=== PATIENT | female | born 1955 | race Caucasian/White ===

== ENCOUNTER 2016-03-25 19:35 | Inpatient (IN) | payer MEDICARE, MEDICAID ==
[~2016-03-25] VITALS: Ht 152.4 cm; Wt 70.3 kg
[2016-03-25] MEDS ORDERED: SODIUM CHLORIDE 0.9% 1,000 ML ONE (20:45)
[2016-03-26] MEDS ORDERED: ALU/MAG/SIM 30 ML UDC PO PRN (02:30)
[2016-03-26] MEDS ORDERED: GLUCAGON 1 MG VIAL IM PRN (02:30)
[2016-03-26] MEDS ORDERED: BISACODYL EC 5 MG TAB PO PRN (02:30)
[2016-03-26] MEDS ORDERED: MAG HYDROX 30 ML UDC PO PRN (02:30)
[2016-03-26] MEDS ORDERED: DEXTROSE 50% SYRINGE 50 ML IV PRN (02:30)
[2016-03-26] MEDS ORDERED: BISACODYL 10 MG SUPP RECTAL PRN (02:30)
[2016-03-26] MEDS ORDERED: SALINE FLUSH 10 ML FLUSH PRN (02:30)
[2016-03-26] MEDS ORDERED: ONDANSETRON 4 MG VIAL IV PRN (02:30)
[2016-03-26 03:47] VITALS: BP_SYST 116; BP_SYST 118; RESP 18; TEMP 97.8
[2016-03-26 03:48] VITALS: Ht 152.4 cm; Wt 70.3 kg
[2016-03-26] MEDS: SODIUM CHLORIDE 0.9% 1,000 ML IV SCH (04:20)
[2016-03-26] MEDS: SODIUM CHLORIDE 0.9% FLUSH BAG 500 ML IV SCH ×2 (05:53→19:59)
[2016-03-26 08:00] VITALS: BP_SYST 110; RESP 16; TEMP 99.6
[2016-03-26] MEDS: SALINE FLUSH 10 ML FLUSH SCH ×2 (08:00→19:34)
[2016-03-26] MEDS ORDERED: PHARMACY TO DOSE LEVAQUIN IV SCH (10:55)
[2016-03-26] MEDS: FLUOXETINE 20 MG CAP PO SCH (10:55)
[2016-03-26] MEDS ORDERED: LEVOFLOXACIN 750 MG/150 ML 150 ML IV SCH (11:15)
[2016-03-26 12:09] VITALS: BP_SYST 126; TEMP 100
[2016-03-26 15:39] VITALS: BP_SYST 153; RESP 20; TEMP 98.9
[2016-03-26] MEDS: hePARIN in D5W (40 UNITS/ML) 500 ML IV SCH (17:14)
[2016-03-26 19:35] VITALS: BP_SYST 145; RESP 20; TEMP 100.5
[2016-03-26 22:30] VITALS: BP_SYST 140; RESP 18; TEMP 100
[2016-03-27 02:43] VITALS: BP_SYST 151; RESP 20; TEMP 98
[2016-03-27] MEDS: SODIUM CHLORIDE 0.9% 1,000 ML IV SCH (02:58)
[2016-03-27] MEDS ORDERED: MISSING DOSE XX ONE (07:45)
[2016-03-27 08:00] VITALS: BP_SYST 125; RESP 16; TEMP 98.2
[2016-03-27] MEDS: FLUOXETINE 20 MG CAP PO SCH (08:01)
[2016-03-27] MEDS: SALINE FLUSH 10 ML FLUSH SCH (08:02)
[2016-03-27] MEDS: hePARIN in D5W (40 UNITS/ML) 500 ML IV SCH (10:34)
[2016-03-27 11:53] VITALS: BP_SYST 121; RESP 16; TEMP 97.3
[2016-03-27] MEDS ORDERED: LEVOFLOXACIN 750 MG/150 ML 150 ML IV SCH (12:24)
[2016-03-27 15:30] VITALS: BP_SYST 125; RESP 16; TEMP 99.1
[2016-03-27] MEDS ORDERED: OPTIRAY 350 100 ML VIAL HMH IV ONE (17:03)
== END 2016-03-27 17:04 | disposition admitted as inpatient to this hospital (09) | DRG 917 ==
LOC: ENRESERVDT → ENRESERVTM → ER 19:35 → EMR 19:36 → PCU2 03-26 02:30 → OBSVTOIN 03-26 16:31 → ENPENDDIS 03-26 16:31
PROVIDERS: ADMIT Internal Medicine; ATTEND Internal Medicine
DX: T40.4X1A Poisoning by other synthetic narcotics, accidental (unintentional), initial encounter (principal); I63.9 Cerebral infarction, unspecified; I21.3 ST elevation (STEMI) myocardial infarction of unspecified site; G93.41 Metabolic encephalopathy; N17.9 Acute kidney failure, unspecified; K92.2 Gastrointestinal hemorrhage, unspecified; N39.0 Urinary tract infection, site not specified; Z86.73 Personal history of transient ischemic attack (TIA), and cerebral infarction without residual deficits; Z00.00 Encounter for general adult medical examination without abnormal findings; E86.9 Volume depletion, unspecified; B02.9 Zoster without complications; I10 Essential (primary) hypertension; E78.5 Hyperlipidemia, unspecified; K21.9 Gastro-esophageal reflux disease without esophagitis; M19.90 Unspecified osteoarthritis, unspecified site; F32.9 Major depressive disorder, single episode, unspecified; I25.9 Chronic ischemic heart disease, unspecified; R60.9 Edema, unspecified; Y92.009 Unspecified place in unspecified non-institutional (private) residence as the place of occurrence of the external cause
CPT/HCPCS: 36415; 70450; 70551; 71010; 71260; 80053; 80307; 80320; 80329; 81001; 82550; 82553; 82947; 83605; 83880; 84145; 84439; 84443; 84484; 85025; 85379; 85610; 85730; 87040; 87493; 93005; 93306; 96360; 99219; 99225; 99238